=== PATIENT | female | born 1995 | race Caucasian/White ===

== ENCOUNTER 2017-04-10 02:46 | Emergency (ER) | payer SELFPAY ==
[~2017-04-10] VITALS: Ht 172.7 cm; Wt 61.7 kg
[2017-04-10 02:51] VITALS: BP 110/65
[2017-04-10] MEDS ORDERED: TDAP [DIPH/PERTUSSIS/TET] 0.5 ML VIAL IM ONE (03:30)
== END 2017-04-10 04:07 | disposition home or self-care (01) ==
LOC: ER 02:46
DX: S01.81XA Laceration without foreign body of other part of head, initial encounter (principal); S09.90XA Unspecified injury of head, initial encounter; W18.00XA Striking against unspecified object with subsequent fall, initial encounter; Y93.89 Activity, other specified; Y92.89 Other specified places as the place of occurrence of the external cause; Y99.8 Other external cause status
CPT/HCPCS: 70450; 99284; A4606; A6403; Z7610

== ENCOUNTER 2020-03-03 03:19 | Emergency (ER) | payer OTHER ==
[~2020-03-03] VITALS: Ht 172.7 cm; Wt 54.4 kg
--- NOTE | 2020-03-03 03:30 | NUR ---
PT BIB SELF C/O ANXIETY ATTACK, +N/V STARTED THIS MORNING, PT IS AAOX4, NOT IN RESPIRATORY DISTRESS, HOOKED TO MONITOR, KEPT RESTED AND COMFORTABLE, WILL CONTINUE TO MONITOR. AWAITING ER MD FOR EVAL.
[2020-03-03] MEDS ORDERED: ONDANSETRON 4 MG TAB.RAPDIS ONE (03:45)
[2020-03-03] MEDS ORDERED: LORAZEPAM 1 MG TABLET ONE (03:45)
[2020-03-03] MEDS ORDERED: ONDANSETRON 4 MG TAB.RAPDIS SL ONE (04:00)
[2020-03-03] MEDS ORDERED: LORAZEPAM 1 MG TABLET PO ONE (04:00)
[2020-03-03] MEDS ORDERED: IV NS 0.9% 1,000 ML BAG IV ONE (04:30)
[2020-03-03] MEDS ORDERED: LORAZEPAM INJ 2 MG/ML VIAL ONE (05:44)
[2020-03-03] MEDS ORDERED: METOCLOPRAMIDE HCL 10 MG/2 ML VIAL ONE (05:44)
[2020-03-03] MEDS ORDERED: ONDANSETRON HCL/PF 4 MG/2 ML VIAL ONE (05:44)
[2020-03-03] MEDS ORDERED: LORAZEPAM INJ 2 MG/ML VIAL IV ONE (06:00)
[2020-03-03] MEDS ORDERED: METOCLOPRAMIDE HCL 10 MG/2 ML VIAL IV ONE (06:00)
[2020-03-03] MEDS ORDERED: ONDANSETRON HCL/PF - ER 4 MG/2 ML VIAL IV ONE (06:00)
--- NOTE | 2020-03-03 06:08 | NUR ---
pt is medically clear for DC. taking uber home. IV removed. Catheter intact and site benign. Pressure and 4x4 applied to site. No bleeding noted.Patient discharged to home in stable condition. Rx and Written and verbal after care instructions given. Patient verbalizes understanding of instruction.
[2020-03-03 06:14] VITALS: BP 121/88
== END 2020-03-03 06:15 | disposition home or self-care (01) ==
LOC: ER 03:20
DX: F41.9 Anxiety disorder, unspecified (principal); Z60.2 Problems related to living alone
CPT/HCPCS: 96374; 96375; 99284; J2060; J2405 ×2; J2765; J7030 ×2; Q0162

== ENCOUNTER 2020-03-05 01:59 | Inpatient (IN) | payer OTHER ==
[~2020-03-05] VITALS: Ht 170.2 cm; Wt 50.3 kg
--- NOTE | 2020-03-05 02:18 | NUR ---
PATIENT CAME TO ER BED 2 C/O NAUSEA, VOMITING, AND ABDOMINAL PAIN. PATIENT STATES THAT SHE HAS BEEN FEELING NAUSEOUS AND "THROWING UP" NON-STOP. PATIENT STATES THAT SHE ALSO HAS PAIN ALL OVER HER STOMACH. AAOX4. NO SOB. BREATHING EVENLY AND UNLABORED ON ROOM AIR. CONNECTED TO MONITOR.
--- NOTE | 2020-03-05 02:20 | NUR ---
SEEN AND EXAMINED BY .
[2020-03-05] MEDS ORDERED: ONDANSETRON HCL/PF 4 MG/2 ML VIAL ONE (02:25)
[2020-03-05] MEDS ORDERED: METOCLOPRAMIDE HCL 10 MG/2 ML VIAL ONE (02:25)
[2020-03-05] MEDS ORDERED: METOCLOPRAMIDE HCL 10 MG/2 ML VIAL IV ONE (02:30)
[2020-03-05] MEDS ORDERED: ONDANSETRON HCL/PF 4 MG/2 ML VIAL IVP ONE (02:30)
[2020-03-05] MEDS ORDERED: IV NS 0.9% 1,000 ML BAG IV ONE (02:30)
--- NOTE | 2020-03-05 02:32 | NUR ---
BLOOD DRAWN AND SENT TO LAB.
[2020-03-05 02:41] LABS: BASOPHILS % (AUTO) 0.2 % (0.0-2.0); HEMATOCRIT 51 % (33-45); HEMOGLOBIN 17.7 g/dL (11.5-14.8); LYMPHOCYTES # (AUTO) 1.6 /CMM (0.8-4.8); LYMPHOCYTES % (AUTO) 8.1 % (20.0-44.0); MEAN CORPUSCULAR HGB CONC 35 g/dl (31.0-36.0); MEAN CORPUSCULAR VOLUME 90 fL (82-100); MONOCYTES # (AUTO) 1.8 /CMM (0.1-1.30); MONOCYTES % (AUTO) 9.2 % (2.0-12.0); NEUTROPHILS # (AUTO) 15.7 /CMM (1.8-8.9); NEUTROPHILS % (AUTO) 82.5 % (43.0-81.0); PLATELET COUNT (AUTO) 431 /CMM (150-450); RED BLOOD CELL COUNT(AUTO) 5.68 MIL/uL (4.0-5.2); WHITE BLOOD COUNT (AUTO) 19.1 K/uL (4.3-11.0)
[2020-03-05 02:57] LABS: ALBUMIN 5.8 g/dL (3.4-5.0); BILIRUBIN,DIRECT 0.2 mg/dL (0.0-0.2); BILIRUBIN,TOTAL 0.8 mg/dL (0.2-1.0); CALCIUM, SERUM 10.6 mg/dL (8.5-10.1); CREATININE 7.3 mg/dL (0.6-1.3); POTASSIUM 3.8 mmol/L (3.5-5.1); TOTAL PROTEIN, SERUM 10.6 g/dL (6.4-8.2)
[2020-03-05] MEDS ORDERED: KETAMINE HCL (500MG/10ML) 50 MG/ML VIAL ONE (03:05)
--- NOTE | 2020-03-05 03:13 | NUR ---
CALLED SUP FOR TELE BED
[2020-03-05] MEDS ORDERED: LORAZEPAM INJ 2 MG/ML VIAL ONE (03:29)
[2020-03-05] MEDS ORDERED: LORAZEPAM INJ 2 MG/ML VIAL IV ONE (03:30)
[2020-03-05] MEDS ORDERED: KETAMINE HCL (500MG/10ML) 50 MG/ML VIAL IV ONE (03:30)
--- NOTE | 2020-03-05 03:35 | NUR ---
CALLLED FOR REPORT, STAFF STATES TO CALL BACK IN 10 MINUTES.
--- NOTE | 2020-03-05 03:53 | NUR ---
REPORT GIVEN TO CHIP THACKER FOR HAIM.
[2020-03-05 04:05] VITALS: BP 124/89
--- NOTE | 2020-03-05 04:05 | NUR ---
MS RN NOTES PATIENT ARRIVED ON FLOOR BY CODY AT 0405. PATIENT IS ALERT AND ORIENTED X 4. BREATHING EVEN AND UNLABORED ON ROOM AIR. SHOWS NO SIGNS OF ACUTE RESPIRATORY DISTRESS, NO ACUTE PAIN. IV ON RAC 20G RUNNING NS AT 125ML/HR. SHOWS NO SIGNS OF INFILTRATION NO REDNESS. BELONGINGS CHECKLIST COMPLETED AND PT STATED TO HAVE NO WOUND OR SKIN TEAR. DID NOT WANT TO HAVE TO HAVE SKIN ASSESSMENT. ORIENTED TO UNIT AND STAFF. SAFETY PRECAUTIONS IN PLACE. BED IN LOWEST POSITION, LOCKED, AND CALL LIGHT KEPT WITHIN REACH. WILL CONTINUE TO MONITOR.
[2020-03-05] MEDS ORDERED: IV NS 0.9% 1,000 ML IV PRN (04:14)
[2020-03-05] MEDS ORDERED: ZOLPIDEM TARTRATE 5 MG TABLET PO PRN (04:30)
[2020-03-05] MEDS ORDERED: ACETAMINOPHEN 325 MG TABLET PO PRN (04:30)
[2020-03-05] MEDS: ONDANSETRON HCL/PF 4 MG/2 ML VIAL IVP PRN ×4 (04:35→23:26)
[2020-03-05 04:36] LABS: THYROID STIMULATING HORMONE 2.053 uIU/mL (0.358-3.74)
[2020-03-05 06:38] LABS: BASOPHILS # (AUTO) 0.1 /CMM (0.0-0.2); BASOPHILS % (AUTO) 0.4 % (0.0-2.0); HEMATOCRIT 44 % (33-45); HEMOGLOBIN 14.8 g/dL (11.5-14.8); LYMPHOCYTES # (AUTO) 1.3 /CMM (0.8-4.8); LYMPHOCYTES % (AUTO) 7.8 % (20.0-44.0); MEAN CORPUSCULAR HGB CONC 34 g/dl (31.0-36.0); MEAN CORPUSCULAR VOLUME 91 fL (82-100); MONOCYTES # (AUTO) 1.3 /CMM (0.1-1.30); MONOCYTES % (AUTO) 7.9 % (2.0-12.0); NEUTROPHILS # (AUTO) 13.5 /CMM (1.8-8.9); NEUTROPHILS % (AUTO) 83.9 % (43.0-81.0); PLATELET COUNT (AUTO) 337 /CMM (150-450); RED BLOOD CELL COUNT(AUTO) 4.81 MIL/uL (4.0-5.2); WHITE BLOOD COUNT (AUTO) 16.1 K/uL (4.3-11.0)
--- NOTE | 2020-03-05 06:38 | NUR ---
MS RN NOTES PATIENT IN BED ASLEEP, ALERT AND ORIENTED X 4. BREATHING EVEN AND UNLABORED ON ROOM AIR. SHOWS NO SIGNS OF ACUTE RESPIRATORY DISTRESS, NO ACUTE PAIN. IV ON RAC 20G RUNNING NS AT 125ML/HR. SHOWS NO SIGNS OF INFILTRATION NO REDNESS. ALL DUE MEDICATIONS GIVEN. SAFETY PRECAUTIONS IN PLACE. BED IN LOWEST POSITION, LOCKED, AND CALL LIGHT KEPT WITHIN REACH. WILL ENDORSE TO ONCOMING NURSE.
[2020-03-05 06:55] LABS: CALCIUM, SERUM 8.7 mg/dL (8.5-10.1); MAGNESIUM 3.6 mg/dL (1.8-2.4); PHOSPHORUS 7.8 mg/dL (2.5-4.9); POTASSIUM 3.3 mmol/L (3.5-5.1)
--- NOTE | 2020-03-05 07:30 | NUR ---
ms rn received on bed, awake,alert,oriented x4,patient came w/ acute renal failure, patient cc of nausea and vomiting,not feeling well,respirations even and unlabored, will continue to monitor.
[2020-03-05 08:00] VITALS: BP 124/71
--- NOTE | 2020-03-05 08:30 | NUR ---
ms nr patient did not tolerate breakfast due to nausea and vomiting, meds given for management.
[2020-03-05] MEDS ORDERED: CITA20TA16 PO (08:46)
[2020-03-05] MEDS: PANTOPRAZOLE 40 MG VIAL IV SCH (10:37)
--- NOTE | 2020-03-05 11:00 | NUR ---
ms rn was seen by dr. becca courtney/ orders made and carried out.
[2020-03-05] MEDS: METOCLOPRAMIDE HCL 10 MG/2 ML VIAL IV PRN ×2 (11:54→18:10)
[2020-03-05 14:36] LABS: CREATININE, URINE 202.9 MG/DL (30.0-125.0); URINE TOTAL PROTEIN 69.7 mg/dL (0-11.9)
[2020-03-05 15:59] LABS: APPEARANCE,URINE CLOUDY (CLEAR); BILIRUBIN,URINE NEGATIVE (NEGATIVE); BLOOD, URINE MODERATE Ery/uL (NEGATIVE); COLOR,URINE YELLOW (YELLOW); KETONES,URINE TRACE (NEGATIVE); LEUKOCYTE ESTERASE ,URINE NEGATIVE (NEGATIVE); NITRITE, URINE NEGATIVE (NEGATIVE); PROTEIN,URINE 30 mg/dl (NEGATIVE); UGLUCOSE NEGATIVE (NEGATIVE); UROBILINOGEN,URINE 0.2 EU/dL (0.2)
[2020-03-05 16:00] VITALS: BP 119/72
--- NOTE | 2020-03-05 16:00 | NUR ---
ms rn patient constantly given anti nausea meds,all needs attended.
[2020-03-05] MEDS: POTASSIUM CHLORIDE IV PRN (16:10)
[2020-03-05] MEDS: LR IV PRN (16:10)
[2020-03-05 16:15] LABS: BACTERIA,URINE Few /HPF (None Seen); SQUAMOUS EPITHELIAL CELL,UR Few /HPF (None Seen); URIC ACID CRYSTALS,URINE Many /HPF (None Seen); WBC,URINE 0-2 /HPF (0-3)
[2020-03-05 16:25] LABS: CALCIUM, SERUM 8.7 mg/dL (8.5-10.1); CREATININE 3.1 mg/dL (0.6-1.3); POTASSIUM 3.2 mmol/L (3.5-5.1)
--- NOTE | 2020-03-05 18:00 | NUR ---
ms rn on bed, sleeping ,no distress noted.
--- NOTE | 2020-03-05 19:45 | NUR ---
ms baltazar initial notes received report from am nurse Inessa and seen pt in bed resting at this time after got her meds for N/V. ivf still infusing . No signs of any acute distress noted at this time. Breathing even and non-labored. kept her warm and comfortable at all times. Place call light at reach. will continue monitoring.
[2020-03-05 20:00] VITALS: BP 118/60
--- NOTE | 2020-03-05 23:26 | NUR ---
ms tobacco classer notes pt c/o nausea and vomiting. Zofran administered by another nurse raúl IVP as ordered. kept pt on sitting position . kept her warm and comfortable at all times. she also complaining of having anxiety attack, started crying. spoke to her that i needs to call his doctor to get some ordered. will continue monitoring.
[2020-03-06] MEDS ORDERED: LORAZEPAM INJ 2 MG/ML VIAL IV ONE (00:30)
[2020-03-06] MEDS ORDERED: LORAZEPAM INJ 2 MG/ML VIAL ONE (00:59)
--- NOTE | 2020-03-06 01:02 | NUR ---
ms ledesma notes ativan 1 mg ivp given as ordered for pt anxiety. vital signs as ff BP 133/73, pulse 81, respiration 18, temp 98.8 and o2 sat 97% in room air. will continue monitoring.
[2020-03-06] MEDS: POTASSIUM CHLORIDE IV PRN ×2 (02:29→18:28)
[2020-03-06] MEDS: LR IV PRN ×2 (02:29→18:28)
--- NOTE | 2020-03-06 03:00 | NUR ---
ms cook helper dessert notes pt sleeping at this time after ativan given . breathing even and non-labored not in any acute distress noted. IVF still infusing. kept her warm and comfortable at all times. place call light at reach.
--- NOTE | 2020-03-06 05:52 | NUR ---
ms scrap hooker notes got called regarding critical result CK-MB 7.2 , no new orders at this time per Dr. Fortino Jean.
[2020-03-06 06:16] LABS: BASOPHILS % (AUTO) 0.1 % (0.0-2.0); EOSINOPHILS % (AUTO) 0.3 % (0.0-6.0); HEMATOCRIT 38 % (33-45); HEMOGLOBIN 12.7 g/dL (11.5-14.8); LYMPHOCYTES # (AUTO) 1.6 /CMM (0.8-4.8); LYMPHOCYTES % (AUTO) 17.4 % (20.0-44.0); MEAN CORPUSCULAR HGB CONC 34 g/dl (31.0-36.0); MEAN CORPUSCULAR VOLUME 92 fL (82-100); MONOCYTES % (AUTO) 11.2 % (2.0-12.0); NEUTROPHILS # (AUTO) 6.5 /CMM (1.8-8.9); PLATELET COUNT (AUTO) 272 /CMM (150-450); RED BLOOD CELL COUNT(AUTO) 4.07 MIL/uL (4.0-5.2); WHITE BLOOD COUNT (AUTO) 9.2 K/uL (4.3-11.0)
[2020-03-06 07:08] LABS: CALCIUM, SERUM 8.7 mg/dL (8.5-10.1); CREATININE 1.2 mg/dL (0.6-1.3); MAGNESIUM 2.9 mg/dL (1.8-2.4); PHOSPHORUS 2.6 mg/dL (2.5-4.9); POTASSIUM 3.3 mmol/L (3.5-5.1)
[2020-03-06 07:08] LABS: COMPLEMENT C3, SERUM 124 mg/dL (82-167); COMPLEMENT C4, SERUM 28 mg/dL (14-44)
[2020-03-06 07:11] LABS: THYROID STIMULATING HORMONE 1.836 uIU/mL (0.358-3.74); URIC ACID 6.2 mg/dL (2.6-7.2)
--- NOTE | 2020-03-06 07:17 | NUR ---
ms job foreman closing notes pt just woke up . she slept well and pt stated she feel better after ativan. IVF still infusing . all due meds given and all needs met. No signs fo any discomfort noted at this time. kept her warm and comfortable at all times. endorse to am nurse for continuity of care.Place call light at reach.
--- NOTE | 2020-03-06 07:30 | NUR ---
ms rn received on bed, awake,alert,oriented x4,patient not in any form of ditress, respirations even and unlabored,no sob noted,denies pain and nausea/vomiting
[2020-03-06 08:00] VITALS: BP 113/59
--- NOTE | 2020-03-06 09:00 | NUR ---
ms carreno breakfast served,due meds given,tolerated well.
[2020-03-06] MEDS: PANTOPRAZOLE 40 MG VIAL IV SCH (09:23)
[2020-03-06] MEDS: ONDANSETRON HCL/PF 4 MG/2 ML VIAL IVP PRN (09:23)
--- NOTE | 2020-03-06 10:00 | NUR ---
ms rn was seen by regina courtney/ orders made and carried out.
[2020-03-06 10:06] LABS: *SPE A/G RATIO 1.1 (0.7-1.7); *SPE ALBUMIN 4.1 g/dL (2.9-4.4); *SPE ALPHA-1-GLOBULIN 0.3 g/dL (0.0-0.4); *SPE ALPHA-2-GLOBULIN 0.9 g/dL (0.4-1.0); *SPE BETA GLOBULIN 1.3 g/dL (0.7-1.3); *SPE GLOBULIN, TOTAL 3.7 g/dL (2.2-3.9); *SPE M-SPIKE Not Observed g/dL (Not Observed); *SPEGAMMA GLOBULIN 1.2 g/dL (0.4-1.8)
--- NOTE | 2020-03-06 11:00 | NUR ---
ms rn 'was seen by robin cunha,all needs attended.
--- NOTE | 2020-03-06 12:34 | NUR ---
ms rn patient ready to be discharge,all needs attended.
[2020-03-06] MEDS: CITALOPRAM HYDROBROMIDE 20 MG TABLET PO SCH (15:07)
[2020-03-06 16:00] VITALS: BP 125/62
--- NOTE | 2020-03-06 17:00 | NUR ---
ms rn patient ,not going home today, per residential driver, no distress noted, denies nausea.
--- NOTE | 2020-03-06 19:30 | NUR ---
MS RN OPENING NOTE RECEIVED PATIENT IN BED. A/OX4. TOLERATING ROOM AIR. RESPIRATIONS ARE EVEN AND UNLABORED. NO S/S SOB NOTED. DENIES PAIN AT THIS TIME. IN NO APPARENT DISTRESS. IV ACCESS IN RAC #20 PATENT AND SALINE LOCKED, PATIENT WISHES TO HAVE NEW IV PLACED. BED IS LOW AND LOCKED, HOB ELEVATED IN SEMI FOWLERS, SIDE RIALS UP X2, CALL LIGHT WITHIN REACH. WILL CONTINUE TO MONITOR.
[2020-03-06 20:00] VITALS: BP 106/66
--- NOTE | 2020-03-07 01:55 | NUR ---
MS RN NOTE CALLED CONTRACT DESIGNER MD SURI FLETCHER D/T PATIENT C/O BAD ACID REFLUX. INFORMED HIM THERE IS A DISCONTINUED REGLAN AND HAS NO PRN ORDER. MD TELEPHONE ORDERED PROTONIX 40MG PO ONE TIME AND MAALOX 30ML ONE TIME NOW. TELEPHONE ORDER READ BACK, NOTED AND CARRIED OUT. WILL CONTINUE TO MONITOR.
[2020-03-07] MEDS ORDERED: MAG HYDROX/AL HYDROX/SIMETH 30 ML UDC PO PRN (02:00)
[2020-03-07] MEDS ORDERED: PANTOPRAZOLE 40 MG TABLET.DR PO ONE (02:00)
[2020-03-07] MEDS: ONDANSETRON HCL/PF 4 MG/2 ML VIAL IVP PRN ×3 (02:04→15:04)
--- NOTE | 2020-03-07 02:04 | NUR ---
MS RN NOTE ADMINISTERED PRN ZOFRAN 4MG D/Y C/O NAUSEA. WILL CONTINUE TO MONITOR.
[2020-03-07] MEDS: LORAZEPAM 1 MG TABLET PO PRN ×2 (02:29→17:59)
--- NOTE | 2020-03-07 02:30 | NUR ---
MS RN NOTE ADMINISTERED PRN ATIVAN 2MG D/T PATIENT BECOMING ANXIOUS. WILL CONTINUE TO MONITOR.
--- NOTE | 2020-03-07 06:54 | NUR ---
MS RN CLOSING NOTE PATIENT IN BED. A/OX4. TOLERATING ROOM AIR. RESPIRATIONS ARE EVEN AND UNLABORED. NO SOB NOTED. NO C/O PAIN. MANAGED NAUSEA AND VOMITING WITH ZOFRAN, MAALOX, AND PROTONIX. NO DISTRESS NOTED. IV ACCESS IN RIGHT WRIST #20 RUNNING KCL 10MRQ @125ML/HR. BED REMAINS LOW AND LOCKED, HOB ELEVATED IN SEMI FOWLERS, SIDE RIALS UP X2, CALL LIGHT WITHIN REACH. WILL ENDORSE TO NEXT SHIFT.
[2020-03-07 07:34] LABS: BASOPHILS % (AUTO) 0.2 % (0.0-2.0); EOSINOPHILS % (AUTO) 0.1 % (0.0-6.0); HEMATOCRIT 36 % (33-45); HEMOGLOBIN 12.2 g/dL (11.5-14.8); LYMPHOCYTES # (AUTO) 1.2 /CMM (0.8-4.8); LYMPHOCYTES % (AUTO) 11.9 % (20.0-44.0); MEAN CORPUSCULAR HGB CONC 34 g/dl (31.0-36.0); MEAN CORPUSCULAR VOLUME 93 fL (82-100); MONOCYTES # (AUTO) 0.8 /CMM (0.1-1.30); MONOCYTES % (AUTO) 8.4 % (2.0-12.0); NEUTROPHILS # (AUTO) 7.8 /CMM (1.8-8.9); NEUTROPHILS % (AUTO) 79.4 % (43.0-81.0); PLATELET COUNT (AUTO) 254 /CMM (150-450); WHITE BLOOD COUNT (AUTO) 9.8 K/uL (4.3-11.0)
[2020-03-07 07:43] LABS: CALCIUM, SERUM 8.6 mg/dL (8.5-10.1); CREATININE 0.8 mg/dL (0.6-1.3); PHOSPHORUS 2.6 mg/dL (2.5-4.9); POTASSIUM 3.3 mmol/L (3.5-5.1)
--- NOTE | 2020-03-07 07:48 | NUR ---
MS RN- OPENING NOTES RECEIVED PATIENT FROM DIRECTOR POST NURSE IN BED, AWAKE, CONSCIOUS, COOPERTIVE, NO SIGNS OF RESPIRATORY DISTRESS, BREATHING AT ROOM AIR, WITH IVF RIGHT WRIST LR 1L PLUS KCL 10 MEQ AT 125ML/HR INFUSING WELL, NO SIGNS OF INFILTRATION AND REDNESS NOTED.
[2020-03-07 08:00] VITALS: BP 119/81
[2020-03-07] MEDS: CITALOPRAM HYDROBROMIDE 20 MG TABLET PO SCH (08:14)
[2020-03-07] MEDS: PANTOPRAZOLE 40 MG VIAL IV SCH (08:15)
[2020-03-07] MEDS: LR IV PRN ×2 (09:34→18:46)
[2020-03-07] MEDS: POTASSIUM CHLORIDE IV PRN ×2 (09:34→18:46)
[2020-03-07] MEDS: POTASSIUM CL. PREMIX PERIPHER. 50 ML IV SCH ×2 (09:47→10:47)
[2020-03-07 16:00] VITALS: BP 115/68
--- NOTE | 2020-03-07 18:55 | NUR ---
MS RN- CLOSING NOTES ENDORSED PATIENT TO HEALTH SERVICES RN NURSE IN BED, AWAKE, CONSCIOUS, COOPERATIVE, AMBULATORY, IVF AT RIGHT WRISTS LR 1L PLUS 10 MEQ KCL AT 125 ML/HR INFUSING WELL, NO SIGNS OF INFILTRATION OR REDNESS, NO SIGNS OR RESPIRATORY DISTRESS.
--- NOTE | 2020-03-07 19:33 | NUR ---
MS RN OPENING NOTES PATIENT ASLEEP IN BED COMFORTABLY; A/OX4; BREATHING EVEN AND UNLABORED; NO SOB OR ACUTE RESPIRATORY DISTRESS NOTED; PATIENT TOLERATING ROOM AIR WELL; R WRIST #20 INTACT AND PATENT; FLUSHING WELL, NO S/S OF REDNESS OR INFILTRATION NOTED; SAFETY PRECAUTIONS IN PLACE; BED LOCKED IN LOW POSITION; SIDE RAILS X2; CALL LIGHT WITHIN REACH; WILL CONTINUE TO MONITOR
[2020-03-07 20:00] VITALS: BP 112/58
[2020-03-08] MEDS: LR IV PRN (03:10)
[2020-03-08] MEDS: POTASSIUM CHLORIDE IV PRN (03:10)
--- NOTE | 2020-03-08 06:34 | NUR ---
MS RN CLOSING NOTES PATIENT SLEEPING IN BED COMFORTABLY, A/OX4; BREATHING EVEN AND UNLABORED; NO SOB OR S/S ACUTE RESPIRATORY DISTRESS NOTED; PATIENT TOLERATING ROOM AIR WELL; R WRIST # 20 INTACT AND PATENT, FLUSHING WELL; IV SITE RUNNING KCL 10MEQ @ 125ML/HR, PATIENT TOLERATING WELL; ALL NEEDS RENDERED; SAFETY PRECAUTIONS IN PLACE; SIDE RAILS X2, CALL LIGHT WITHIN REACH, WILL ENDORSE HAIM TO ONCOMING NURSE
--- NOTE | 2020-03-08 07:29 | NUR ---
MS RN NOTES R WRIST #20 DISLODGED; IV TIP INTACT; NO SIGNS OF BLEEDING; NO SIGNS OF INFILTRATION NOTED; NEW IV ACCESS: R HAND # 18 INTACT AND PATENT; FLUSHING WELL, NO S/S OF REDNESS OR INFILTRATION; WILL ENDORSE HAIM TO ONCOMING SHIFT
[2020-03-08] MEDS: LORAZEPAM 1 MG TABLET PO PRN (07:53)
[2020-03-08 08:00] VITALS: BP_SYST 123; BP_SYST 125; BP_DIAS 61; BP_DIAS 64; BP_DIAS 74
--- NOTE | 2020-03-08 08:01 | NUR ---
RN Notes: Received pt. awake in bed, outgoing nurses reinserted the IV on the right hand. Pt. is responsive to staffs, no sign of distress. Pt. is anxious and asked for Ativan prn po and given. Will continue to monitor
[2020-03-08] MEDS: ONDANSETRON HCL/PF 4 MG/2 ML VIAL IVP PRN (08:23)
--- NOTE | 2020-03-08 08:27 | NUR ---
Pt. vomited, Zofran IV given prn. Will continue to monitor. Addendum: 03/08/20 at 1025 by MAIKOL COLBERT RN Made aware that pt. did not eat breakfast said will vomit after eating. Pt. vomited once and Zofran IN given.
[2020-03-08 09:02] LABS: BASOPHILS # (AUTO) 0.1 /CMM (0.0-0.2); BASOPHILS % (AUTO) 0.8 % (0.0-2.0); EOSINOPHILS % (AUTO) 1.6 % (0.0-6.0); HEMATOCRIT 36 % (33-45); HEMOGLOBIN 12.1 g/dL (11.5-14.8); LYMPHOCYTES # (AUTO) 2.2 /CMM (0.8-4.8); LYMPHOCYTES % (AUTO) 31.5 % (20.0-44.0); MEAN CORPUSCULAR HGB CONC 33 g/dl (31.0-36.0); MEAN CORPUSCULAR VOLUME 94 fL (82-100); MONOCYTES # (AUTO) 0.7 /CMM (0.1-1.30); MONOCYTES % (AUTO) 10.1 % (2.0-12.0); NEUTROPHILS # (AUTO) 3.9 /CMM (1.8-8.9); PLATELET COUNT (AUTO) 231 /CMM (150-450); RED BLOOD CELL COUNT(AUTO) 3.89 MIL/uL (4.0-5.2)
[2020-03-08 09:33] LABS: CALCIUM, SERUM 8.4 mg/dL (8.5-10.1); CREATININE 0.6 mg/dL (0.6-1.3); MAGNESIUM 1.7 mg/dL (1.8-2.4); POTASSIUM 3.5 mmol/L (3.5-5.1)
[2020-03-08] MEDS: PANTOPRAZOLE 40 MG VIAL IV SCH (09:57)
[2020-03-08] MEDS: CITALOPRAM HYDROBROMIDE 20 MG TABLET PO SCH (10:16)
[2020-03-08] MEDS: IV D5/ 0.9% NACL 1,000 ML IV PRN (10:38)
[2020-03-08 10:41] LABS: ALBUMIN 3.2 g/dL (3.4-5.0); BILIRUBIN,DIRECT 0.1 mg/dL (0.0-0.2); BILIRUBIN,TOTAL 0.6 mg/dL (0.2-1.0)
[2020-03-08 10:45] LABS: BILIRUBIN,DIRECT 0.1 mg/dL (0.0-0.2); BILIRUBIN,TOTAL 0.6 mg/dL (0.2-1.0)
--- NOTE | 2020-03-08 10:52 | NUR ---
D5 NS 1L started at 100c/hr.
[2020-03-08] MEDS ORDERED: K PHOS NEUTRAL 250 MG TABLET PO ONE (13:00)
[2020-03-08 16:00] VITALS: BP 122/72
[2020-03-08] MEDS ORDERED: DEXTROSE 50%-WATER 50 ML DISP.SYRIN IV PRN (18:30)
--- NOTE | 2020-03-08 18:54 | NUR ---
RN Closing Notes: Pt. awake in bed, quiet, ate 50% for dinner, no n/v noted, no distress, noted. Pt. with an order of CT of the Abdomen Pelvis with contrast and pt. signed the consent. Will endorse to the incoming nurse for the continuity of care.
[2020-03-08 20:00] VITALS: BP 123/61
[2020-03-08] MEDS ORDERED: IOHEXOL-300 100 ML VIAL IV ONE (21:28)
[2020-03-08] MEDS ORDERED: CT SWABBABLE VALVE TRANS SET 1 EA INFUS.SET MC ONE (21:29)
[2020-03-08] MEDS ORDERED: IV NS 0.9% 250 ML IV ONE (21:29)
[2020-03-09] MEDS: BLOOD SUGAR DIAGNOSTIC 1 EACH STRIP IN SCH ×4 (00:57→18:32)
[2020-03-09] MEDS: LORAZEPAM 1 MG TABLET PO PRN ×3 (02:58→23:20)
[2020-03-09] MEDS: IV D5/ 0.9% NACL 1,000 ML IV PRN ×2 (03:02→16:38)
[2020-03-09] MEDS: ONDANSETRON HCL/PF 4 MG/2 ML VIAL IVP PRN ×2 (03:09→11:15)
--- NOTE | 2020-03-09 06:26 | NUR ---
MS RN NOTES AWAKE & RESPONSIVE. NOT IN ANY DISTRESS. NO SOB NOTED. DENIES ANY PAIN OR DISCOMFORT AT THIS TIME. WITH IVF INFUSING WELL. MONITORED ACCORDINGLY. CALL LIGHT WITHIN REACH. BED IN LOWEST POSITION. SR UP X 2 FOR SAFETY. WILL ENDORSE TO NEXT SHIFT.
[2020-03-09 08:00] VITALS: BP 119/69
--- NOTE | 2020-03-09 08:00 | NUR ---
MS RN OPENING NOTES Received Patient resting in bed. A/O x 4. VS stable with no acute distress. Breathing even and unlabored on room air with no respiratory distress. Denies pain. No signs and symptoms of pain. 22g PIV on Right Hand clean, intact, patent and flushing well with D5NS at 100ml/hr. Safety precautions in place. Bed locked and set to lowest position with side rails x 2 up. All needs rendered at this time. Call light within reach. Will continue to monitor.
[2020-03-09 08:21] LABS: BASOPHILS % (AUTO) 0.4 % (0.0-2.0); EOSINOPHILS % (AUTO) 0.6 % (0.0-6.0); HEMATOCRIT 35 % (33-45); HEMOGLOBIN 11.7 g/dL (11.5-14.8); LYMPHOCYTES # (AUTO) 1.4 /CMM (0.8-4.8); LYMPHOCYTES % (AUTO) 19.4 % (20.0-44.0); MEAN CORPUSCULAR HGB CONC 34 g/dl (31.0-36.0); MEAN CORPUSCULAR VOLUME 94 fL (82-100); MONOCYTES # (AUTO) 0.6 /CMM (0.1-1.30); MONOCYTES % (AUTO) 7.8 % (2.0-12.0); NEUTROPHILS # (AUTO) 5.2 /CMM (1.8-8.9); NEUTROPHILS % (AUTO) 71.8 % (43.0-81.0); PLATELET COUNT (AUTO) 236 /CMM (150-450); RED BLOOD CELL COUNT(AUTO) 3.72 MIL/uL (4.0-5.2); WHITE BLOOD COUNT (AUTO) 7.2 K/uL (4.3-11.0)
[2020-03-09 08:36] LABS: ALBUMIN 3.2 g/dL (3.4-5.0); BILIRUBIN,TOTAL 0.5 mg/dL (0.2-1.0); CALCIUM, SERUM 8.1 mg/dL (8.5-10.1); CREATININE 0.6 mg/dL (0.6-1.3); MAGNESIUM 1.6 mg/dL (1.8-2.4); PHOSPHORUS 2.5 mg/dL (2.5-4.9); TOTAL PROTEIN, SERUM 5.9 g/dL (6.4-8.2)
[2020-03-09] MEDS: CITALOPRAM HYDROBROMIDE 20 MG TABLET PO SCH (09:57)
[2020-03-09] MEDS: PANTOPRAZOLE 40 MG VIAL IV SCH (09:57)
[2020-03-09] MEDS: POTASSIUM CHLORIDE 20 MEQ TAB.PRT.SR PO SCH ×3 (09:57→12:40)
[2020-03-09 16:00] VITALS: BP 100/62
[2020-03-09] MEDS: MAGNESIUM OXIDE 400 MG TABLET PO SCH (16:38)
[2020-03-09] MEDS: INSULIN REGULAR, HUMAN 100 UNIT/ML 3 ML VIAL SQ PRN (18:40)
--- NOTE | 2020-03-09 19:03 | NUR ---
MS RN CLOSING NOTES Patient resting in bed. A/O x 4. VS stable with no acute distress. Breathing even and unlabored on room air with no respiratory distress. Denies pain. No signs and symptoms of pain. 22g PIV on Right Hand clean, intact, patent and flushing well with D5NS at 100ml/hr. Safety precautions in place. Bed locked and set to lowest position with side rails x 2 up. All needs rendered at this time. Call light within reach. Will endorse plan of care to oncoming shift.
--- NOTE | 2020-03-09 19:45 | NUR ---
MS RN OPENING NOTES RECEIVED PATIENT FROM MORNING SHIFT, ALERT AND ORIENTED X 3. VERBALLY RESPONSIVE AND ABLE TO FOLLOW DIRECTIONS. BREATHING REGULAR AND UNLABORED ON ROOM AIR. RIGHT HAND G22 IV LINE INTACT AND PATENT, INFUSING WELL WITH NO BLEEDING OR S/S OF INFILTRATION NOTED. DENIES ANY SUICIDAL/HOMICIDAL IDEATION AT THIS TIME. NO COMPLAINTS OF PAIN/DISCOMFORT REPORTED. BED LOW AND LOCKED ON SEMI FOWLERS POSITION. CALL LIGHT IN REACH. WILL CONTINUE TO MONITOR.
[2020-03-09 20:00] VITALS: BP 100/61
[2020-03-09 20:34] VITALS: BP 100/61
--- NOTE | 2020-03-09 23:20 | NUR ---
MS RN NOTES ANXIETY VERBALIZED, ATIVAN 2MG GIVEN BY MOUTH. NON-PHARMACOLOGICAL INTERVENTIONS PROVIDED. WILL CONTINUE TO MONITOR.
--- NOTE | 2020-03-10 | NUR ---
MS RN NOTES BS 140mg/dl, 2UNITS REGULAR INSULIN GIVEN SQ. SNACKS PROVIDED ON BEDSIDE. WILL CONTINUE TO MONITOR.
[2020-03-10] MEDS: BLOOD SUGAR DIAGNOSTIC 1 EACH STRIP IN SCH ×5 (00:02→23:29)
[2020-03-10] MEDS: INSULIN REGULAR, HUMAN 100 UNIT/ML 3 ML VIAL SQ PRN ×4 (00:03→23:30)
[2020-03-10] MEDS: IV D5/ 0.9% NACL 1,000 ML IV PRN (01:36)
--- NOTE | 2020-03-10 06:35 | NUR ---
MS RN CLOSING NOTES PATIENT IN BED ALERT AND ORIENTED X 3. AFEBRILE WITH NO S/S OF DISTRESS OBSERVED. RIGHT HAND G22 IV LINE PATENT AND INFUSING WELL. NO COMPLAINTS OF PAIN/DISCOMFORT REPORTED THE WHOLE SHIFT. BED LOW AND LOCKED ON SEMI FOWLERS POSITION. CALL LIGHT IN REACH. WILL ENDORSE TO MORNING SHIFT FOR HAIM.
[2020-03-10 07:17] LABS: BASOPHILS % (AUTO) 0.9 % (0.0-2.0); EOSINOPHILS % (AUTO) 1.8 % (0.0-6.0); HEMATOCRIT 34 % (33-45); HEMOGLOBIN 11.4 g/dL (11.5-14.8); LYMPHOCYTES # (AUTO) 2.2 /CMM (0.8-4.8); MEAN CORPUSCULAR HGB CONC 33 g/dl (31.0-36.0); MEAN CORPUSCULAR VOLUME 94 fL (82-100); MONOCYTES # (AUTO) 0.5 /CMM (0.1-1.30); MONOCYTES % (AUTO) 10.2 % (2.0-12.0); NEUTROPHILS # (AUTO) 2.1 /CMM (1.8-8.9); NEUTROPHILS % (AUTO) 42.1 % (43.0-81.0); PLATELET COUNT (AUTO) 232 /CMM (150-450); RED BLOOD CELL COUNT(AUTO) 3.64 MIL/uL (4.0-5.2); WHITE BLOOD COUNT (AUTO) 4.9 K/uL (4.3-11.0)
[2020-03-10 07:20] LABS: CALCIUM, SERUM 8.1 mg/dL (8.5-10.1); CREATININE 0.6 mg/dL (0.6-1.3); MAGNESIUM 1.8 mg/dL (1.8-2.4); PHOSPHORUS 2.9 mg/dL (2.5-4.9); POTASSIUM 3.5 mmol/L (3.5-5.1)
--- NOTE | 2020-03-10 07:46 | NUR ---
MS RN OPENING NOTES RECEIVED PATIENT IN BED, AWAKE, A/O X3. PATIENT ON ROOM AIR, BREATHING IS EVEN AND UNLABORED. NO SOB PRESENT AT THIS MOMENT. IV ACCESS ON R HAND GAUGE # 22 INFUSING D5NS AT 100 MLS/HR. NO PAIN REPORTED BY THE PATIENT. SAFETY PRECAUTIONS IN PLACE; BED IN LOW POSITION AND LOCKED, RAINS UP X2, CALL LIGHT WITHIN REACH. WILL CONTINUE TO MONITOR PATIENT.
[2020-03-10 08:00] VITALS: BP 109/69
[2020-03-10] MEDS: CITALOPRAM HYDROBROMIDE 20 MG TABLET PO SCH (09:00)
[2020-03-10] MEDS: PANTOPRAZOLE 40 MG VIAL IV SCH (09:00)
[2020-03-10] MEDS: MAGNESIUM OXIDE 400 MG TABLET PO SCH ×2 (09:00→16:56)
--- NOTE | 2020-03-10 12:36 | NUR ---
MS RN NOTES NO ACCUCHECK DONE AT 12; PATIENT IS IN FOR PROCEDURE.
[2020-03-10 16:26] VITALS: BP 126/68
[2020-03-10] MEDS: METOCLOPRAMIDE HCL 10 MG TABLET PO SCH ×2 (17:45→23:23)
--- NOTE | 2020-03-10 19:14 | NUR ---
MS RN CLOSING NOTES PATIENT IN BED, AWAKE, A/O X3. PATIENT ON ROOM AIR, BREATHING IS EVEN AND UNLABORED. NO SOB PRESENT AT THIS MOMENT. IV ACCESS ON R HAND GAUGE # 22 INTACT AND FLUSHING WELL. NO PAIN REPORTED BY THE PATIENT. PATIENT IS NOW ON CLEAR LIQUID DIET. MUST BE NPO AFTER MIDNIGHT FOR A PROCEDURE. CONSENTS SIGNED AND FILED. ALL NEEDS ATTENDED TO THROUGHOUT THE DAY. SAFETY PRECAUTIONS IN PLACE; BED IN LOW POSITION AND LOCKED, RAINS UP X2, CALL LIGHT WITHIN REACH. WILL ENDORSE TO CARTON WRAPPER NURSE.
--- NOTE | 2020-03-10 19:20 | NUR ---
MS/RN OPENING NOTES RECEIVED PATIENT IN BED, AWAKE, A/O X3. PATIENT ON ROOM AIR, BREATHING IS EVEN AND UNLABORED. NO SOB PRESENT AT THIS MOMENT. IV ACCESS ON R HAND GAUGE # 22 INFUSING D5NS AT 100 MLS/HR. NO PAIN REPORTED BY THE PATIENT. NPO STARTING MIDNIGHT FOR PROCEDURE TOMORROW. PT. AWARE. SAFETY PRECAUTIONS IN PLACE; BED IN LOW POSITION AND LOCKED, SIDE RAILS UP X2, CALL LIGHT WITHIN REACH. WILL CONTINUE TO MONITOR PATIENT.
[2020-03-10 20:00] VITALS: BP 106/60
[2020-03-10] MEDS: LORAZEPAM 1 MG TABLET PO PRN (21:57)
--- NOTE | 2020-03-10 21:57 | NUR ---
MS/RN NOTES: PATIENT IS HAVING ANXIETY. REQUESTED FOR ATIVAN. GIVEN 2MG PO. TOLERATED WELL. VS WNL. WILL CONTINUE TO MONITOR ACCORDINGLY.
--- NOTE | 2020-03-11 | NUR ---
MS/RN NOTES: BS CHECK WAS 82. NO INSULIN GIVEN BASED ON SLIDING SCALE. PT IS STABLE. WILL CONTINUE TO MONITOR ACCORDINGLY.
[2020-03-11] MEDS: IV D5/ 0.9% NACL 1,000 ML IV PRN (02:36)
[2020-03-11] MEDS: BLOOD SUGAR DIAGNOSTIC 1 EACH STRIP IN SCH (05:52)
[2020-03-11] MEDS: METOCLOPRAMIDE HCL 10 MG TABLET PO SCH (05:52)
[2020-03-11] MEDS: INSULIN REGULAR, HUMAN 100 UNIT/ML 3 ML VIAL SQ PRN (05:53)
--- NOTE | 2020-03-11 05:53 | NUR ---
MS/RN NOTES: BS CHECK 102. NO INSULIN GIVEN BASED ON SLIDING SCALE. PT. STABLE. REGLAN HELD FOR NPO STATUS FOR EGD PROCEDURE IN THE MORNING.
--- NOTE | 2020-03-11 06:23 | NUR ---
MS/RN NOTES: VS TAKEN AND DOCUMENTED. BP: 107/63. TEMP:97.9 RR:18 O2SAT:100%. STABLE AND NO C/O PAIN AT THIS TIME. AWAITING FOR PROCEDURE. KEPT NPO AT MIDNIGHT. NO ACUTE DISTRESS. NO SOB NOTED. WILL CONTINUE TO MONITOR.
--- NOTE | 2020-03-11 06:29 | NUR ---
MS/RN CLOSING NOTES: PT. REMAINS A/OX4. NO C/O PAIN, NO C/O OF NAUSEA. NO S/S OF DISTRESS OR DISCOMFORT. NO SOB NOTED. IV ON THE RIGHT HAND #22G INTACT AND PATENT, SL. FLUSHING WELL. ALL CONSENTS FOR PROCEDURE AND CHECKLIST READY. UA COLLECTED. AWAITING TO BE PICKED UP BY OR. WILL ENDORSE TO NEXT ONCOMING SHIFT.
[2020-03-11] MEDS ORDERED: ANESTHESIA TRAY IN PYXIS 1 EA TRAY MC ONE (06:48)
[2020-03-11 07:01] LABS: APPEARANCE,URINE CLOUDY (CLEAR); BILIRUBIN,URINE NEGATIVE (NEGATIVE); BLOOD, URINE NEGATIVE Ery/uL (NEGATIVE); COLOR,URINE YELLOW (YELLOW); KETONES,URINE NEGATIVE (NEGATIVE); LEUKOCYTE ESTERASE ,URINE NEGATIVE (NEGATIVE); NITRITE, URINE NEGATIVE (NEGATIVE); PROTEIN,URINE NEGATIVE (NEGATIVE); UGLUCOSE NEGATIVE (NEGATIVE)
[2020-03-11 07:11] LABS: BASOPHILS % (AUTO) 1.1 % (0.0-2.0); EOSINOPHILS % (AUTO) 1.9 % (0.0-6.0); HEMATOCRIT 37 % (33-45); HEMOGLOBIN 12.4 g/dL (11.5-14.8); LYMPHOCYTES # (AUTO) 1.8 /CMM (0.8-4.8); LYMPHOCYTES % (AUTO) 42.1 % (20.0-44.0); MEAN CORPUSCULAR HGB CONC 34 g/dl (31.0-36.0); MEAN CORPUSCULAR VOLUME 94 fL (82-100); MONOCYTES # (AUTO) 0.4 /CMM (0.1-1.30); MONOCYTES % (AUTO) 9.8 % (2.0-12.0); NEUTROPHILS # (AUTO) 1.9 /CMM (1.8-8.9); NEUTROPHILS % (AUTO) 45.1 % (43.0-81.0); PLATELET COUNT (AUTO) 256 /CMM (150-450); RED BLOOD CELL COUNT(AUTO) 3.91 MIL/uL (4.0-5.2); WHITE BLOOD COUNT (AUTO) 4.3 K/uL (4.3-11.0)
[2020-03-11 07:13] LABS: SQUAMOUS EPITHELIAL CELL,UR Moderate /HPF (None Seen)
[2020-03-11 07:14] LABS: BACTERIA,URINE Moderate /HPF (None Seen); MUCUS,URINE Few /LPF (None Seen); RBC,URINE 0-2 /HPF (0-2); WBC,URINE 0-2 /HPF (0-3)
[2020-03-11 07:19] LABS: CALCIUM, SERUM 8.6 mg/dL (8.5-10.1); CREATININE 0.6 mg/dL (0.6-1.3); MAGNESIUM 1.8 mg/dL (1.8-2.4); PHOSPHORUS 2.8 mg/dL (2.5-4.9); POTASSIUM 3.7 mmol/L (3.5-5.1)
[2020-03-11] MEDS ORDERED: ERYTHROMYCIN 250 MG in IV NS 0.9% 100 ML IV SCH (07:30)
--- NOTE | 2020-03-11 08:03 | NUR ---
rn opening notes patient received on room air, no sob noted, a/o x4 at this time. Patient back from OR. vital signs stable. mild gastritis was the diagnosis per RN. Bed at the lwoest setting, call light within reach, side rail;s up x2.
[2020-03-11] MEDS: MAGNESIUM OXIDE 400 MG TABLET PO SCH (08:50)
[2020-03-11] MEDS: CITALOPRAM HYDROBROMIDE 20 MG TABLET PO SCH (08:50)
[2020-03-11] MEDS: PANTOPRAZOLE 40 MG VIAL IV SCH (08:51)
[2020-03-11 09:00] VITALS: BP 110/74
--- NOTE | 2020-03-11 10:27 | NUR ---
rn notes HAIM given to Allan CURIEL
--- NOTE | 2020-03-11 10:30 | NUR ---
m/s automatic washer mechanic: notes received pt in bed awake, a/ox4, very anxious. pt wants to go home, s/p egd per report. ordered early tray for pt. dr. thomason making rounds. instructed to call for assistance.
--- NOTE | 2020-03-11 11:00 | NUR ---
m/s qualification engineer: md visit seen and examined by dr. thomason with verbal order to discharge pt home. order carried out and acknowledged.
--- NOTE | 2020-03-11 11:30 | NUR ---
m/s clinical rehabilitation specialist: notes dr. thomason notified re: erythromycin ordered by dr. turner and ask md if pt needs prescription for antibiotic, stated, "no, she can go."
--- NOTE | 2020-03-11 11:45 | NUR ---
m/s senior tax analyst: notes d'c instructions with prescriptions given to pt and reviewed her prescriptions. pt verbalized understanding and will f/u with her pmd and psychiatrist as outpatient as stated. h/l removed with tip intact.
--- NOTE | 2020-03-11 11:58 | NUR ---
m/s forensic engineer: discharged discharged home in stable condition via ambulatory, pt will call uber as stated.
[2020-03-11] MEDS ORDERED: ERYTHROMYCIN BASE (250 MG) 250 MG CAPSULE.DR PO SCH (12:00)
== END 2020-03-11 16:30 | disposition home or self-care (01) | DRG 393 ==
LOC: ER 02:00 → TELE 03:37 → MED 04:53
PROVIDERS: ADMIT Student in an Organized Health Care Education/Training Program
PROC: 0DB68ZX Excision of Stomach, Via Natural or Artificial Opening Endoscopic, Diagnostic (ICD-10-PCS; principal; 2020-03-11)
DX: R11.15 Cyclical vomiting syndrome unrelated to migraine (principal); N17.0 Acute kidney failure with tubular necrosis; E87.1 Hypo-osmolality and hyponatremia; M62.82 Rhabdomyolysis; J98.11 Atelectasis; K29.70 Gastritis, unspecified, without bleeding; F12.188 Cannabis abuse with other cannabis-induced disorder; E83.39 Other disorders of phosphorus metabolism; E16.2 Hypoglycemia, unspecified; E86.0 Dehydration; E83.41 Hypermagnesemia; E86.1 Hypovolemia; E87.6 Hypokalemia; F41.1 Generalized anxiety disorder; K31.84 Gastroparesis; N30.90 Cystitis, unspecified without hematuria; D72.829 Elevated white blood cell count, unspecified; F41.0 Panic disorder [episodic paroxysmal anxiety]; R74.0 Nonspecific elevation of levels of transaminase and lactic acid dehydrogenase [LDH]
CPT/HCPCS: 36415; 71045-TC; 76700-TC; 76770-TC; 80048-TC; 80053-TC; 80061-TC; 80076-TC; 80305; 81000-TC; 82088; 82247-TC; 82248-TC; 82533; 82550-TC; 82570-TC; 82962-TC; 83690-TC; 83735-TC; 83935-TC; 84100-TC; 84155; 84155-TC; 84165; 84244; 84300-TC; 84443-TC; 84550-TC; 84702-TC; 84703-TC; 85025-TC; 85730-TC; 86060; 86850-TC; 87081-TC; 87086-TC; 88305-TC; A9541; C9113; G0378; J1364; J1815; J2060; J2405; J2704; J2765; J3480; J3490; J7030; J7042; J7050; J7120; J8597; Q9967

== ENCOUNTER 2020-03-31 14:44 | Inpatient (IN) | payer OTHER ==
[~2020-03-31] VITALS: Ht 172.7 cm; Wt 52.2 kg
[~2020-03-31 14:44] MED LIST: CITA20TA16 PO
--- NOTE | 2020-03-31 15:03 | NUR ---
CURT, SENT BY POCKET CUTTER. TO ER BED 12. AAOX4. NOT IN RESP DISTRESS. AMBULATORY. CAME IN FOR SEVERE ANXIETY AND FEELING DEPRESSED. PER PT, SHE HAS BEEN FEELING AXIOUS WITH TRIGGERS OF BEING ALONE AND CONCERN OF HER HEALTH. DENIES SI NOR HI. DENIES HALLUCINATIONS. AWAITING MD FOR EVAL.
[2020-03-31] MEDS ORDERED: ALPRAZOLAM 0.25 MG TABLET ONE (15:18)
--- NOTE | 2020-03-31 15:20 | NUR ---
CHARTER PILOT AT BEDSIDE FOR BLOOD DRAW
[2020-03-31 15:26] LABS: BASOPHILS # (AUTO) 0.1 /CMM (0.0-0.2); BASOPHILS % (AUTO) 0.5 % (0.0-2.0); EOSINOPHILS % (AUTO) 0.5 % (0.0-6.0); HEMATOCRIT 47 % (33-45); HEMOGLOBIN 15.9 g/dL (11.5-14.8); LYMPHOCYTES % (AUTO) 18.3 % (20.0-44.0); MEAN CORPUSCULAR HGB CONC 34 g/dl (31.0-36.0); MEAN CORPUSCULAR VOLUME 92 fL (82-100); MONOCYTES # (AUTO) 1.5 /CMM (0.1-1.30); NEUTROPHILS # (AUTO) 7.2 /CMM (1.8-8.9); NEUTROPHILS % (AUTO) 66.7 % (43.0-81.0); PLATELET COUNT (AUTO) 420 /CMM (150-450); WHITE BLOOD COUNT (AUTO) 10.8 K/uL (4.3-11.0)
[2020-03-31] MEDS ORDERED: ALPRAZOLAM 0.25 MG TABLET PO ONE (15:30)
[2020-03-31 15:37] LABS: CALCIUM, SERUM 9.5 mg/dL (8.5-10.1); POTASSIUM 3.2 mmol/L (3.5-5.1)
[2020-03-31 15:41] LABS: CREATININE 4.5 mg/dL (0.6-1.3)
[2020-03-31 15:53] LABS: MAGNESIUM 3.3 mg/dL (1.8-2.4)
[2020-03-31] MEDS ORDERED: IV NS 0.9% 500 ML BAG IV ONE (16:30)
[2020-03-31] MEDS ORDERED: ONDANSETRON HCL/PF 4 MG/2 ML VIAL ONE (16:33)
--- NOTE | 2020-03-31 16:37 | NUR ---
PT VERBALIZED THAT SHE IS NAUSEOUS. MADE AWARE. RECEIVED ORDER TO GIVE ZOFRAN 4MG X 1. NOTED AND CARRIED OUT
--- NOTE | 2020-03-31 16:38 | NUR ---
IV LINE OBTAINED ON RFA 20G.
[2020-03-31] MEDS ORDERED: ONDANSETRON HCL/PF - ER 4 MG/2 ML VIAL IV ONE (17:00)
--- NOTE | 2020-03-31 17:15 | NUR ---
PAGED [facility].
--- NOTE | 2020-03-31 17:53 | NUR ---
ROOM ASSIGNMENT: [id number]
[2020-03-31] MEDS ORDERED: ACETAMINOPHEN 325 MG TABLET PO PRN (18:00)
[2020-03-31] MEDS ORDERED: MAGNESIUM HYDROXIDE 30 ML UDC PO PRN (18:00)
[2020-03-31] MEDS ORDERED: MAG HYDROX/AL HYDROX/SIMETH 30 ML UDC PO PRN (18:00)
[2020-03-31] MEDS ORDERED: ONDANSETRON HCL/PF 4 MG/2 ML VIAL IVP PRN (18:00)
[2020-03-31] MEDS ORDERED: Z GUARD REMEDY 2 OZ OINT TP PRN (18:00)
--- NOTE | 2020-03-31 18:00 | NUR ---
REPORT GIVEN TO KIRSTIE ESQUIVEL FOR HAIM
--- NOTE | 2020-03-31 18:19 | NUR ---
PT TRANSPORTED TO UNIT ON WHEELCHAIR WITH EMT AT BEDSIDE. PT IS STABLE FOR TRANSPORT. NAD NOTED
[2020-03-31] MEDS: IV NS 0.9% 1,000 ML IV SCH (18:30)
--- NOTE | 2020-03-31 18:30 | NUR ---
MS RN NOTES RECEIVED PATIENT FROM ER. PATIENT PLACED IN ROOM. PATIENT ALERT, ORIENTED X4. NO SOB OR ACUTE DISTRESS NOTED. IV FLUIDS STARTED. ORIENTED PATIENT TO ROOM. BED IN LOW LOCKED POSITION. CALL LIGHT WITHIN REACH. WILL ENDORSE CARE TO PM SHIFT.
--- NOTE | 2020-03-31 19:35 | NUR ---
MS RN OPENING NOTES RECEIVED PATIENT IN BED, A/OX4; NO SOB NOTED; BREATHING EVEN AND UNLABORED; NO DISTRESS OR PAIN AT THIS TIME; R FA #20 INTACT AND PATENT; INFUSING NS @ 125ML/HR, PATIENT TOLERATING IVF WELL; IV SITE FLUSHING WELL, NO S/S OF REDNESS OR INFILTRATION NOTED; SAFETY PRECAUTIONS IMPLEMENTED; WILL CONTINUE TO MONITOR
[2020-03-31 20:00] VITALS: BP 105/81
--- NOTE | 2020-04-01 01:45 | NUR ---
MS RN NOTES PATIENT REQUESTED TO USE RESTROOM; PATIENT A/OX4; PATIENT AMBULATORY; BREATHING EVEN AND UNLABORED; NO SOB NOTED; PATIENT TOLERATING ROOM AIR WELL; NO DISTRESS NOTED; PATIENT DENIES PAIN; WILL CONT TO MONITOR;
[2020-04-01] MEDS: IV NS 0.9% 1,000 ML IV SCH ×3 (02:30→15:55)
[2020-04-01] MEDS: ALPRAZOLAM 0.5 MG TABLET PO PRN ×2 (05:38→05:49)
--- NOTE | 2020-04-01 05:42 | NUR ---
MS RN NOTES PATIENT COMPLAINT OF NAUSEA; PATIENT STATED SHE ALSO FELT LIKE THROWING UP BUT NOTHING IS COMING OUT; ZOFRAN GIVEN MD ORDER, AFTER ZOFRAN WAS ADMINISTERED, PATIENT REQUESTED IF POSSIBLE TO STAY WITH HER A LITTLE LONGER; PATIENT REQUESTED XANAX; RETRIEVED MEDICATION AND PATIENT STARTED THROWING UP PHLEGM; INFORMED PATIENT EMESIS EPISODES NEEDS TO STOP PRIOR TO XANAX ADMINISTRATION; PATIENT MAY END UP THROWING UP MED; PATIENT VERBALIZED UNDERSTANDING; WILL CONT TO MONITOR
--- NOTE | 2020-04-01 06:19 | NUR ---
MS RN CLOSING NOTES PATIENT RESTING IN BED COMFORTABLY; BREATHING EVEN AND UNLABORED; NO SOB NOTED; PATIENT TOLERATING ROOM AIR WELL; EMESIS SEEMS TO HAVE DIMINISHED; ZOFRAN AND XANAX ADMINISTERED; WILL INFORM ONCOMING SHIFT; ALL NEEDS RENDERED; SAFETY PRECAUTIONS IMPLEMENTED; BED LOCKED IN LOW POSITION; SIDE RAILS X2; CALL LIGHT WITHIN REACH; PATIENT REQUESTING ATIVAN INSTEAD OF XANAX; WILL INFORM DAY SHIFT; WILL ENDORSE HAIM TO ONCOMING SHIFT
[2020-04-01 06:46] LABS: BASOPHILS % (AUTO) 0.6 % (0.0-2.0); HEMATOCRIT 41 % (33-45); HEMOGLOBIN 13.8 g/dL (11.5-14.8); LYMPHOCYTES # (AUTO) 2.4 /CMM (0.8-4.8); LYMPHOCYTES % (AUTO) 33.8 % (20.0-44.0); MEAN CORPUSCULAR HGB CONC 34 g/dl (31.0-36.0); MEAN CORPUSCULAR VOLUME 92 fL (82-100); MONOCYTES % (AUTO) 14.3 % (2.0-12.0); NEUTROPHILS # (AUTO) 3.6 /CMM (1.8-8.9); NEUTROPHILS % (AUTO) 50.3 % (43.0-81.0); PLATELET COUNT (AUTO) 310 /CMM (150-450); RED BLOOD CELL COUNT(AUTO) 4.44 MIL/uL (4.0-5.2); WHITE BLOOD COUNT (AUTO) 7.2 K/uL (4.3-11.0)
[2020-04-01 07:14] LABS: CALCIUM, SERUM 8.4 mg/dL (8.5-10.1); CREATININE 1.6 mg/dL (0.6-1.3); MAGNESIUM 2.6 mg/dL (1.8-2.4); PHOSPHORUS 2.8 mg/dL (2.5-4.9)
[2020-04-01 07:27] LABS: POTASSIUM 2.5 mmol/L (3.5-5.1)
[2020-04-01 08:00] VITALS: BP 104/65
[2020-04-01] MEDS ORDERED: POTASSIUM CHLORIDE 20 MEQ TAB.PRT.SR PO ONE (08:00)
[2020-04-01] MEDS: POTASSIUM CL. PREMIX PERIPHER. 50 ML IV SCH ×8 (08:30→19:39)
[2020-04-01] MEDS ORDERED: CITALOPRAM HYDROBROMIDE 20 MG TABLET PO SCH (09:00)
--- NOTE | 2020-04-01 11:40 | NUR ---
SOCIAL WORK NOTE: Pt is a 24 year old female who presented to the ED for upset stomach and vomiting uncontrollably. Pt was previously admitted on 03/05 due to the same symptoms. Pts UDS came back positive for cannabinoids and denies other illicit drug use. Pt was seen by psychiatrist Dr. Kahn due to pts severe anxiety. Pt denied suicidal/homicidal ideation and denied visual/auditory hallucination. Upon social work evaluation, pt presents laying in bed with her face covered with a sweater. Pt states that she does not feel good and wishes for more medication to take her pain away. Pt provided limited information, pts mood is anxious with sad affect. Pt was uncooperative and kept reaping "I don't want to talk." When asked about her support systems/family support pt became tearful and stated, "I don't want to talk about my family." Per Becca THACKER, pt has been "okay" however, has had her face covered all morning and not wanting to talk. Per Tiara WARNER, pt has been med seeking and has been manipulating staff with symptoms and requesting specific medications. Per RN, pt presented at the ED last month for the same symptoms and had the same presentation. SW will follow up with pt to provide substance abuse referrals at a later time.
[2020-04-01] MEDS: CITALOPRAM HYDROBROMIDE 20 MG TABLET PO SCH (12:13)
[2020-04-01 14:45] LABS: ALBUMIN 3.7 g/dL (3.4-5.0); BILIRUBIN,TOTAL 0.7 mg/dL (0.2-1.0); CALCIUM, SERUM 8.4 mg/dL (8.5-10.1); MAGNESIUM 2.4 mg/dL (1.8-2.4); PHOSPHORUS 2.8 mg/dL (2.5-4.9); POTASSIUM 4.2 mmol/L (3.5-5.1); TOTAL PROTEIN, SERUM 6.9 g/dL (6.4-8.2)
[2020-04-01 16:00] VITALS: BP 109/61
--- NOTE | 2020-04-01 18:00 | NUR ---
urine sent per dr. mata orders.potassium replacement given iv due to nausea,med x1 with maalox for nausea.
[2020-04-01 19:26] LABS: BILIRUBIN,URINE NEGATIVE (NEGATIVE); BLOOD, URINE NEGATIVE Ery/uL (NEGATIVE); COLOR,URINE YELLOW (YELLOW); KETONES,URINE 15 (NEGATIVE); LEUKOCYTE ESTERASE ,URINE NEGATIVE (NEGATIVE); NITRITE, URINE NEGATIVE (NEGATIVE); PH,URINE 6.5 (5.0-8.0); PROTEIN,URINE NEGATIVE (NEGATIVE); UGLUCOSE NEGATIVE (NEGATIVE); UROBILINOGEN,URINE 0.2 EU/dL (0.2)
[2020-04-01 19:31] LABS: CREATININE, URINE 162.5 MG/DL (30.0-125.0); URINE SODIUM, RANDOM < 5 mmol/l (40-220); URINE TOTAL PROTEIN 42.5 mg/dL (0-11.9)
[2020-04-01 19:49] LABS: APPEARANCE,URINE SLIGHTLY CLOUDY (CLEAR); BACTERIA,URINE Few /HPF (None Seen); RBC,URINE 0-2 /HPF (0-2); WBC,URINE 0-2 /HPF (0-3)
[2020-04-01 19:50] LABS: SQUAMOUS EPITHELIAL CELL,UR Few /HPF (None Seen); URINE AMORPHOUS URATE Many /HPF (None Seen)
--- NOTE | 2020-04-01 19:55 | NUR ---
RN NOTES RECEIVED PATIENT IN BED, ALERT / ORIENTED X4; NO SOB NOTED; BREATHING EVEN AND UNLABORED; NO DISTRESS OR PAIN AT THIS TIME; R FA #20 INTACT AND PATENT; INFUSING NS @ 125ML/HR, PATIENT TOLERATING IVF WELL; IV SITE FLUSHING WELL, NO S/S OF REDNESS OR INFILTRATION NOTED; SAFETY PRECAUTIONS IN PLACE, ASPIRATION PRECAUTION EMPHASIZE, CALL LIGHT WITH IN EASY REACH, BED IN LOW LOCKED POSITION, ALL NEEDS ANTICIPATED, WILL CONTINUE TO MONITOR ACCORDINGLY.
[2020-04-01 20:00] VITALS: BP 104/66
[2020-04-01 20:00] LABS: EOSINOPHIL,URINE None Seen
[2020-04-02] MEDS: IV NS 0.9% 1,000 ML IV SCH (02:00)
--- NOTE | 2020-04-02 06:54 | NUR ---
RN NOTES ALL NEEDS ATTENDED AND MET. PATIENT IN BED, ALERT / ORIENTED X4; NO SOB NOTED; BREATHING EVEN AND UNLABORED; NO DISTRESS OR PAIN AT THIS TIME; R FA #20 INTACT AND PATENT; INFUSING NS @ 125ML/HR, PATIENT TOLERATING IVF WELL; IV SITE FLUSHING WELL, NO S/S OF REDNESS OR INFILTRATION NOTED; SAFETY PRECAUTIONS IN PLACE, ASPIRATION PRECAUTION EMPHASIZE, CALL LIGHT WITH IN EASY REACH, BED IN LOW LOCKED POSITION, ALL NEEDS ANTICIPATED, WILL ENDORSE TO AM NURSE FOR CONTINUITY OF CARE.
[2020-04-02 07:30] LABS: BASOPHILS % (AUTO) 0.5 % (0.0-2.0); EOSINOPHILS % (AUTO) 1.8 % (0.0-6.0); HEMATOCRIT 38 % (33-45); HEMOGLOBIN 12.7 g/dL (11.5-14.8); LYMPHOCYTES # (AUTO) 2.1 /CMM (0.8-4.8); LYMPHOCYTES % (AUTO) 41.3 % (20.0-44.0); MEAN CORPUSCULAR HGB CONC 33 g/dl (31.0-36.0); MEAN CORPUSCULAR VOLUME 94 fL (82-100); MONOCYTES # (AUTO) 0.6 /CMM (0.1-1.30); MONOCYTES % (AUTO) 12.6 % (2.0-12.0); NEUTROPHILS # (AUTO) 2.2 /CMM (1.8-8.9); NEUTROPHILS % (AUTO) 43.8 % (43.0-81.0); PLATELET COUNT (AUTO) 241 /CMM (150-450); RED BLOOD CELL COUNT(AUTO) 4.07 MIL/uL (4.0-5.2)
--- NOTE | 2020-04-02 07:30 | NUR ---
received pt. alert and oriented x4.iv infusing.no complaints offered.
[2020-04-02 07:38] LABS: ALBUMIN 3.3 g/dL (3.4-5.0); BILIRUBIN,TOTAL 0.7 mg/dL (0.2-1.0); CALCIUM, SERUM 8.1 mg/dL (8.5-10.1); CREATININE 0.6 mg/dL (0.6-1.3); MAGNESIUM 2.2 mg/dL (1.8-2.4); PHOSPHORUS 1.8 mg/dL (2.5-4.9); POTASSIUM 3.7 mmol/L (3.5-5.1); TOTAL PROTEIN, SERUM 6.2 g/dL (6.4-8.2)
[2020-04-02 08:00] VITALS: BP 91/62
[2020-04-02] MEDS ORDERED: CITALOPRAM HYDROBROMIDE 20 MG TABLET PO SCH (09:00)
[2020-04-02] MEDS: CITALOPRAM HYDROBROMIDE 20 MG TABLET PO SCH (09:21)
--- NOTE | 2020-04-02 11:30 | NUR ---
dr. collins in and plans for discharge.
[2020-04-02] MEDS ORDERED: K PHOS NEUTRAL 250 MG TABLET PO ONE (13:30)
--- NOTE | 2020-04-02 15:00 | NUR ---
neutra phos given for low phosphorous level.
--- NOTE | 2020-04-02 15:30 | NUR ---
dc instructions given.all papers signed.hep lock out.taken to lobby accompanied by forestry contractor to be picked up by uber.aware to make appt. with pmd.
== END 2020-04-02 15:30 | disposition home or self-care (01) | DRG 683 ==
LOC: ER 14:44 → MED 18:00
PROVIDERS: ADMIT Internal Medicine; ATTEND Internal Medicine
DX: N17.0 Acute kidney failure with tubular necrosis (principal); E87.1 Hypo-osmolality and hyponatremia; E87.3 Alkalosis; N30.90 Cystitis, unspecified without hematuria; K29.70 Gastritis, unspecified, without bleeding; E83.41 Hypermagnesemia; E87.6 Hypokalemia; R11.15 Cyclical vomiting syndrome unrelated to migraine; Z79.899 Other long term (current) drug therapy; E86.0 Dehydration; F19.21 Other psychoactive substance dependence, in remission; F41.0 Panic disorder [episodic paroxysmal anxiety]; F41.1 Generalized anxiety disorder; E86.9 Volume depletion, unspecified
CPT/HCPCS: 36415; 80048-TC; 80053-TC; 80305; 81000-TC; 82550-TC; 82570-TC; 83735-TC; 84100-TC; 84155-TC; 84300-TC; 84702-TC; 85025-TC; 87081-TC; G0378; J2405; J3480; J7030; J7040